=== PATIENT | male | born 1950 | race Caucasian/White ===

== ENCOUNTER 2019-09-17 | Emergency (ER) | payer MEDICARE, OTHER ==
[2019-09-17] MEDS ORDERED: ALLOPURINOL300 MG PO (10:42)
[2019-09-17] MEDS ORDERED: BISOPROL FUM5 MG PO (10:44)
[2019-09-17] MEDS ORDERED: OCUVITE PO (10:47)
[2019-09-17] MEDS ORDERED: CIALIS5 MG PO (10:48)
[2019-09-17] MEDS ORDERED: DILTIAZEM HYDR240 MG PO (10:52)
[2019-09-17] MEDS ORDERED: DEPO-TESTOS100 MG/ML IM (10:55)
[2019-09-17] MEDS ORDERED: FOLIC ACID1 MG PO (10:56)
[2019-09-17] MEDS ORDERED: FUROSEMIDE20 MG PO ×2 (10:59→11:01)
[2019-09-17] MEDS ORDERED: GABAPENTIN100 MG PO (11:02)
[2019-09-17] MEDS ORDERED: [UNRECOGNIZED DRUG - OTHER] PO (11:03)
[2019-09-17] MEDS ORDERED: FISH OIL1000 MG PO (11:03)
[2019-09-17] MEDS ORDERED: MICARDIS40 MG PO (11:05)
[2019-09-17] MEDS ORDERED: METRONIDAZOLE (11:05)
[2019-09-17] MEDS ORDERED: PROTONIX40 M2 PO (11:06)
[2019-09-17] MEDS ORDERED: PRAVASTATIN20 MG PO (11:07)
[2019-09-17] MEDS ORDERED: SPIRONOLACTONE25 MG PO (11:08)
[2019-09-17] MEDS ORDERED: IBUPROFEN600 MG PO (12:11)
[2019-09-17] MEDS ORDERED: HYDROCO/APAP1 TA9 PO (12:11)
== END 2019-09-17 12:30 | disposition home or self-care (01) ==
DX: S83.91XA Sprain of unspecified site of right knee, initial encounter (principal); I10 Essential (primary) hypertension; I48.91 Unspecified atrial fibrillation; W18.2XXA Fall in (into) shower or empty bathtub, initial encounter; Y93.E1 Activity, personal bathing and showering; Y92.002 Bathroom of unspecified non-institutional (private) residence as the place of occurrence of the external cause; Z95.0 Presence of cardiac pacemaker; M79.89 Other specified soft tissue disorders
CPT/HCPCS: L1830

== ENCOUNTER 2020-10-30 09:33 | Emergency (ER) | payer MEDICARE, OTHER ==
[~2020-10-30] VITALS: Ht 193 cm; Wt 131.8 kg
[~2020-10-30 09:33] MED LIST: ALLOPURINOL300 MG PO; BISOPROL FUM5 MG PO; CIALIS5 MG PO; DEPO-TESTOS100 MG/ML IM; DILTIAZEM HYDR240 MG PO; FISH OIL1000 MG PO; FOLIC ACID1 MG PO; FUROSEMIDE20 MG PO; GABAPENTIN100 MG PO; HYDROCO/APAP1 TA9 PO; IBUPROFEN600 MG PO; METRONIDAZOLE; MICARDIS40 MG PO; OCUVITE PO; PRAVASTATIN20 MG PO; PROTONIX40 M2 PO; SPIRONOLACTONE25 MG PO; [UNRECOGNIZED DRUG - OTHER] PO
[2020-10-30] MEDS ORDERED: KEFLEX500 M1 PO (11:26)
[2020-10-30 11:40] VITALS: BP 138/72
== END 2020-10-30 11:40 | disposition home or self-care (01) ==
LOC: ED 09:33
DX: L03.116 Cellulitis of left lower limb (principal); L84 Corns and callosities; I11.0 Hypertensive heart disease with heart failure; I50.9 Heart failure, unspecified; I48.91 Unspecified atrial fibrillation; E78.00 Pure hypercholesterolemia, unspecified; Z95.0 Presence of cardiac pacemaker

== ENCOUNTER 2021-09-06 17:20 | Observation (INO) | payer MEDICARE, OTHER ==
[~2021-09-06] VITALS: Ht 193 cm; Wt 126.0 kg
[~2021-09-06 17:20] MED LIST changes: +KEFLEX500 M1 PO
--- NOTE | 2021-09-06 17:25 | NUR ---
PT TO ROOM VIA WHEELCHAIR, ACCOMPANIED BY .
[2021-09-06 18:30] LABS: HEMATOCRIT 42.4 % (39.0-50.0); HEMOGLOBIN 14.6 g/dl (14.0-18.0); IMMATURE GRANULOCYTES 0.2 % (0.0-5.0); MEAN CELL VOLUME 102.2 fL CALC (80.0-100.0); MEAN CORPUSCULAR HGB 35.2 pG CALC (26.0-32.0); MEAN CORPUSCULAR HGB CONC 34.4 g/dL CAL (32.0-36.0); NEUT# 7.94 thou/uL (1.82-7.42); RED BLOOD COUNT 4.15 mill/uL (4.70-6.10); RED CELL DISTRI WIDTH 12.9 % (11.5-15.5)
--- NOTE | 2021-09-06 18:38 | NUR ---
Reassessment of patient completed. No distress noted.
[2021-09-06 18:44] LABS: ALBUMIN 4.1 g/dL (3.2-5.0); ALKALINE PHOSPHATASE 49 u/l (38-126); ANION GAP 12 (6-22 (CALC)); BILIRUBIN, TOTAL 1.1 mg/dL (0.0-1.4); BUN 29 mg/dL (8-23); BUN/CREATININE RATIO 24 (12-20 (CALC)); CARBON DIOXIDE 27 mmol/l (22-30); CHLORIDE 96 mmol/l (95-108); CREATININE 1.2 mg/dL (0.7-1.3); GFR 60 ML/MIN (>=60 (CALC)); GFR FOR AFR.AMER. > 60 ML/MIN (>=60 (CALC)); SGOT/AST 26 u/l (19-48); SODIUM 130 mmol/l (137-146); TOTAL PROTEIN 7.9 g/dL (6.3-8.2)
--- NOTE | 2021-09-06 19:04 | NUR ---
Reassessment of patient completed. No distress noted.
--- NOTE | 2021-09-06 19:25 | NUR ---
DRSG APPLIED TO LEFT FOOT ABSCESS PRESENT TO LEFT FOOT PLANTAR.
[2021-09-06] MEDS ORDERED: FINASTERIDE5 MG PO (19:28)
[2021-09-06] MEDS ORDERED: PANTOPRAZOLE SO40 M1 PO (19:28)
[2021-09-06] MEDS ORDERED: MICARDIS80 MG PO (19:30)
[2021-09-06] MEDS ORDERED: ALFUZOSIN HCL E10 MG PO (19:30)
[2021-09-06] MEDS ORDERED: ZYLOPRIM300 MG PO (19:31)
[2021-09-06] MEDS ORDERED: GABAPENTIN100 MG PO (19:32)
[2021-09-06] MEDS ORDERED: FOLIC ACID1 MG PO (19:32)
[2021-09-06] MEDS ORDERED: KLOR-CON M2020 MEQ PO (19:33)
[2021-09-06] MEDS ORDERED: PACERONE200 MG PO (19:34)
[2021-09-06] MEDS ORDERED: CIALIS5 MG PO (19:35)
[2021-09-06] MEDS ORDERED: NEO/POLY/DEX0.13 OU (19:37)
[2021-09-06] MEDS ORDERED: ELIQUIS5 MG PO (19:38)
[2021-09-06] MEDS ORDERED: CREON12000 UNT PO (19:38)
[2021-09-06] MEDS ORDERED: DILTIAZEM HCL240 M1 PO (19:39)
[2021-09-06] MEDS ORDERED: SPIRONOLACTONE25 MG PO (19:40)
[2021-09-06] MEDS ORDERED: FUROSEMIDE20 MG PO (19:41)
[2021-09-06] MEDS ORDERED: BISOPROL FUM5 MG PO (19:42)
[2021-09-06] MEDS ORDERED: FLUTICASONE0.005 % EX (19:44)
[2021-09-06] MEDS ORDERED: PRAVASTATIN40 MG PO (19:45)
[2021-09-06] MEDS ORDERED: PROPAFENONE150 M1 PO (19:46)
--- NOTE | 2021-09-06 19:54 | NUR ---
REPORT PROVIDED TO PIPPA HUNTLEY
--- NOTE | 2021-09-06 20:22 | NUR ---
NURSE ROBERTO NOT AVAILABLE FOR REPORT AT THIS TIME. WILL CALL BACK FOR REPORT
--- NOTE | 2021-09-06 20:29 | NUR ---
PT AGREES WITH PLAN FOR ADMISSION. VANCO INFUSION RUNNING. VSS. NO DISTRESS
--- NOTE | 2021-09-06 20:30 | NUR ---
Admission Note Report Given to: ROBERTO Transported by: Wheelchair Stretcher Transported with: X Nurse Transporter X Patent IV O2 Lathe Sander Location: ICU X MS2 TRANSPORTED VIA WHEELCHAIR
[2021-09-06 21:21] VITALS: BP 144/71
--- NOTE | 2021-09-06 23:00 | NUR ---
PATIENT ADMITTED FROM ER VIA WHEELCHAIR WITH ER STAFF IN ATTENDANCE. PATIENT ABLE TO TRANSFER TO THE BED. PATIENT IS AWAKE ALERT AND ORIENTEDX3. ADMITTED FOR CELLULITIS/ABCESS LEFT FOOT. DRESSING TO LEFT FOOT IS CDI. ELEVATED ON PILLOW FOR SWOLLEN FOOT. PATIENT FOR PROBABLE SURGERY TOMORROW WITH PODIATRY. NPO ORDERED. IV SITE TO LEFT HAND INTACT AND HEALTHY WITH GOOD BLKOOD RETURN. IVF NS HUNG AND INFUSING AT 100CC/HR. MAXIPIME HUNG ORDERED. PATIENT WITH NO PAIN ISSUES AT THIS TIME. LUNGS ARE CLEAR. ABD IS LARGE BUT SOFT WITH ACTIVE BS. STATES THAT HE HAD BM TODAY AND NO DIFFICULTY WITH URINATION AT THIS TIME. PATIENT ORIENTED TO ROOM AND SURROUNDINGS. INSTRUCTED ON USE OF NURSE CALL LIGHT SYSTEM AND TV REMOTE. SAFETY PRECAUTIONS REINFORCED. CALL LIGHT IN REACH. WILL CONT TO MONITOR.
--- NOTE | 2021-09-07 00:30 | NUR ---
PATIENT RESTING IN BED WITH C-PAP FROM HOME IN PLACE. NPO ORDERED. IVF PATENT AND INFUSING VIA LEFT HAND SITE. CALL LIGHT IN REACH. WILL CONT TO KEVAN.
--- NOTE | 2021-09-07 03:56 | NUR ---
PATIENT CALLED AND STATES THAT HIS LEFT FOOT DRESSING HAS FALLEN OFF. RESPONDED TO ROOM AND DRESSING IS OFF. WOUND TO LEFT FOOT WAS CLEANED WITH SALING AND NEW DSD WAS APPLIED AFTER TAKING PHOTO OF THE WOUND FOR THE CHART. MINIMAL DRAINAGE WAS NOTED ON OLD DRESSING. PATIENT WAS MEDICATED WITH TYLENOL 650MG PO FOR LEFT FOOT PAIN-5/10 ON PAIN SCALE. PATIENT REFUSING TO ELEVATE THE LEFT FOOT AT THIS TIME. STATES THAT IT IS TOO UNCOMFORTABLE. IVF NS PATENT AND INFUSING LEFT HAND SITE AT 100CC/HR. NPO EXCEPT FOR SIP OF WATER TO TAKE MEDS. VOIDED QS YELLOW URINE IN URINAL. SAFETY PRECAUTIONS REINFORCED. CALL LIGHT IN REACH. WILL CONT TO MONITOR.
[2021-09-07 04:00] VITALS: BP 145/68
--- NOTE | 2021-09-07 05:05 | NUR ---
PATIENT SITTING ON THE SIDE OF THE BED. ASKING FOR FAN AND ONE WAS PROVIDED. THERMASTAT WAS ADJUSTED FOR PATIENT WHO STATES HE IS TOO HOT. PATIENT WITH NON-PRODUCTIVE COUGH-STATES THAT THIS JUST STARTED TONIGHT. VOIDED 300CC OF YELLOW URINE IN URINAL. IVF NS PATENT AND INFUSING VIA LEFT HAND SITE AT 100CC/HR. REMAINS NPO FOR POSSIBLE PROCEURE TODAY.
--- NOTE | 2021-09-07 07:00 | NUR ---
DR PABLO AT BEDSIDE DISCUSSING POC
--- NOTE | 2021-09-07 07:32 | NUR ---
PT TRANSPORTED TO RADIOLOGY FOR XRAY OF LT FOOT PER DR PABLO'S ORDERS. PT LEFT IN STABLE CONDITION.
[2021-09-07 08:30] VITALS: BP 140/63
--- NOTE | 2021-09-07 09:45 | NUR ---
Jone MOROCHO RT AT BEDSIDE FOR EKG
--- NOTE | 2021-09-07 10:18 | NUR ---
CONSENT OBTAINED FROM PATIENT TO OBTAIN MEDICAL RECORDS FROM PCP: [facility] - DR. ALBERTS IN [place] PHONE # FAX # & FROM [employer] OFFICE DR CURRY[facility] PHONE # FAX # . REQUEST FORMS FAXED; CONFIRMATIONS OBTAINED.
--- NOTE | 2021-09-07 10:41 | NUR ---
DR MAYNARD, Jone GARDNER APRN AND Jone ALCAZAR APRN AT BEDSIDE DISCUSSING POC.
--- NOTE | 2021-09-07 10:51 | NUR ---
RADIOLOGY AT BEDSIDE OBTAINING PCXR.
--- NOTE | 2021-09-07 12:16 | NUR ---
PT SITTING IN BED; LUNCH BROUGHT PER MD ORDERS; PT NOT WANTING LUNCH ALTHOUGH HE ASKED FOR IT; STATES HE DOES NOT WANT TO JEOPARDIZE HIS SURGERY; AGREEABLE TO DRINKING HIS TEA; 400 CC OF YELLOW URINE EMPTIED FROM URINAL; LASIX IVP ADMINISTERED AT THIS TIME. UPDATED PT AND ON POC AND TRANSFER. NO OTHER NEEDS AT THIS TIME. CALL LIGHT WITHIN REACH.
[2021-09-07 15:00] VITALS: BP 163/76
--- NOTE | 2021-09-07 15:24 | NUR ---
S: CELESTINA BLACKWELL is a 71 M who presents witH FOOT ABSCESS . He has a history of AFIB HTN HF COPD CAD. All medications in patient's chart were reviewed. O: VS: BP 140/63 , P 62, RR 18,T 97 W 126kg, HT 76IN, Scr= 1.2,CrCl= 81ml/min A: Blood culture NEGATIVE P: Patient is on CEFEPIME 1 GRAM Q12H . Vancomycin ordered for pharmacy to dose. Start Vancomycin 1250MG IV Q12H. Vancomycin trough is drawn before the 4th dose on 09/08/21 @0900. Vancomycin goal trough is between <10-15 mcg/ml>. Pharmacy will follow and or advise on antibiotics use as needed.
--- NOTE | 2021-09-07 16:15 | NUR ---
Discharge instructions given. Patient verbalizes understanding of same. Discharged in stable condition via [facility] to [facility] accompanied by staff All belongings sent with pt including home cpap and other personal belongings. #20G LH remained; healthy and patent. Dressing applied to wound with telfa and kerlex for transport.
--- NOTE | 2021-09-07 16:23 | NUR ---
REPORT GIVEN TO SOLANGE DAS AT [facility]
== END 2021-09-07 16:15 | disposition short-term general hospital (02) ==
LOC: ED 17:20 → ED-I 19:00 → ED 19:07 → MS2 19:08
PROVIDERS: Family Medicine; ADMIT Hospitalist; ATTEND Hospitalist
DX: L02.612 Cutaneous abscess of left foot (principal); L03.116 Cellulitis of left lower limb; I11.0 Hypertensive heart disease with heart failure; I50.32 Chronic diastolic (congestive) heart failure; I49.5 Sick sinus syndrome; I48.19 Other persistent atrial fibrillation; I25.10 Atherosclerotic heart disease of native coronary artery without angina pectoris; E78.5 Hyperlipidemia, unspecified; K21.9 Gastro-esophageal reflux disease without esophagitis; G47.33 Obstructive sleep apnea (adult) (pediatric); Z79.01 Long term (current) use of anticoagulants; Z95.0 Presence of cardiac pacemaker; Z20.822 Contact with and (suspected) exposure to COVID-19
CPT/HCPCS: J0692; J3370

== ENCOUNTER 2022-09-24 05:54 | Inpatient (IN) | payer MEDICARE, OTHER ==
[~2022-09-24] VITALS: Ht 193 cm; Wt 127.2 kg
[~2022-09-24 05:54] MED LIST changes: +ALFUZOSIN HCL E10 MG PO; +CREON1 CAP PO; +DILTIAZEM HCL240 M1 PO; +ELIQUIS5 MG PO; +FINASTERIDE5 MG PO; +FLUTICASONE0.005 % EX; +KLOR-CON M2020 MEQ PO; +MICARDIS80 MG PO; +NEO/POLY/DEX0.13 OU; +PACERONE200 MG PO; +PANTOPRAZOLE SO40 M1 PO; +PRAVASTATIN40 MG PO; +PROPAFENONE150 M1 PO; +ZYLOPRIM300 MG PO
[2022-09-24 07:12] LABS: BASO% 0.3 % (0-3); EOS% 1.3 % (0-8); HEMATOCRIT 39.3 % (39.0-50.0); HEMOGLOBIN 13.8 g/dl (14.0-18.0); IMMATURE GRANULOCYTES 0.2 % (0.0-5.0); LYMPH% 10.5 % (15-41); MEAN CELL VOLUME 103.4 fL CALC (80.0-100.0); MEAN CORPUSCULAR HGB 36.3 pG CALC (26.0-32.0); MEAN CORPUSCULAR HGB CONC 35.1 g/dL CAL (32.0-36.0); MONO% 9.9 % (2-13); NEUT# 4.98 thou/uL (1.82-7.42); NEUT% 77.8 % (42-76); RED BLOOD COUNT 3.8 mill/uL (4.70-6.10); RED CELL DISTRI WIDTH 13.2 % (11.5-15.5)
[2022-09-24 07:43] LABS: ANION GAP 11 (6-22 (CALC)); BUN 19 mg/dL (8-23); BUN/CREATININE RATIO 18 (12-20 (CALC)); CARBON DIOXIDE 26 mmol/l (22-30); CHLORIDE 105 mmol/l (95-108); GFR FOR AFR.AMER. > 60 ML/MIN (>=60 (CALC)); GFR OTHER RACES > 60 ML/MIN (>=60 (CALC)); POTASSIUM 4.8 mmol/l (3.5-5.1)
[2022-09-24 07:50] LABS: SODIUM 137 mmol/l (137-146)
[2022-09-24] MEDS ORDERED: PLAVIX75 MG PO (08:52)
[2022-09-24] MEDS ORDERED: ASPIRIN81 MG PO (08:52)
[2022-09-24 10:47] VITALS: BP 153/69
[2022-09-24 15:07] VITALS: BP 150/63
[2022-09-24 19:43] VITALS: BP 171/72
[2022-09-25 01:23] VITALS: BP 186/95
[2022-09-25 04:13] VITALS: BP 153/63
[2022-09-25 06:13] LABS: HEMATOCRIT 36.7 % (39.0-50.0); HEMOGLOBIN 13.2 g/dl (14.0-18.0); IMMATURE GRANULOCYTES 0.5 % (0.0-5.0); LYMPH% 9.3 % (15-41); MEAN CELL VOLUME 101.7 fL CALC (80.0-100.0); MEAN CORPUSCULAR HGB 36.6 pG CALC (26.0-32.0); MONO% 2.9 % (2-13); NEUT# 3.86 thou/uL (1.82-7.42); NEUT% 87.3 % (42-76); RED BLOOD COUNT 3.61 mill/uL (4.70-6.10); RED CELL DISTRI WIDTH 12.8 % (11.5-15.5)
[2022-09-25 06:42] VITALS: BP 153/63
[2022-09-25 06:53] LABS: ALBUMIN 3.8 g/dL (3.2-5.0); ALKALINE PHOSPHATASE 57 u/l (38-126); ANION GAP 11 (6-22 (CALC)); BUN 24 mg/dL (8-23); BUN/CREATININE RATIO 25 (12-20 (CALC)); CARBON DIOXIDE 26 mmol/l (22-30); CHLORIDE 100 mmol/l (95-108); GFR FOR AFR.AMER. > 60 ML/MIN (>=60 (CALC)); GFR OTHER RACES > 60 ML/MIN (>=60 (CALC)); POTASSIUM 4.4 mmol/l (3.5-5.1); SGOT/AST 27 u/l (19-48); SODIUM 132 mmol/l (137-146); TOTAL PROTEIN 7.1 g/dL (6.3-8.2)
[2022-09-25 06:55] LABS: BILIRUBIN, TOTAL 0.3 mg/dL (0.0-1.4)
[2022-09-25 09:26] VITALS: BP 146/66
[2022-09-25 09:37] VITALS: BP 146/66
[2022-09-25] MEDS ORDERED: VIBRAMYCIN100 M2 PO (12:10)
[2022-09-25] MEDS ORDERED: MEDDOSEPAK PO (12:10)
== END 2022-09-25 13:42 | disposition home or self-care (01) | DRG 291 ==
LOC: ED 05:54 → ED-I 08:05 → ED 08:32 → MS2 08:33
PROVIDERS: Family Medicine; ADMIT Internal Medicine; ATTEND Internal Medicine
DX: I11.0 Hypertensive heart disease with heart failure (principal); J18.9 Pneumonia, unspecified organism; J96.01 Acute respiratory failure with hypoxia; J44.1 Chronic obstructive pulmonary disease with (acute) exacerbation; J44.0 Chronic obstructive pulmonary disease with (acute) lower respiratory infection; I48.19 Other persistent atrial fibrillation; I50.9 Heart failure, unspecified; K21.9 Gastro-esophageal reflux disease without esophagitis; N40.0 Benign prostatic hyperplasia without lower urinary tract symptoms; G47.30 Sleep apnea, unspecified; E78.00 Pure hypercholesterolemia, unspecified; E88.09 Other disorders of plasma-protein metabolism, not elsewhere classified; Z87.891 Personal history of nicotine dependence; Z89.422 Acquired absence of other left toe(s); Z95.818 Presence of other cardiac implants and grafts; Z95.0 Presence of cardiac pacemaker; Z20.822 Contact with and (suspected) exposure to COVID-19

== ENCOUNTER 2022-12-06 11:11 | Emergency (ER) | payer MEDICARE, OTHER ==
[~2022-12-06] VITALS: Ht 193 cm; Wt 280.0 kg
[~2022-12-06 11:11] MED LIST changes: +ASPIRIN81 MG PO; +MEDDOSEPAK PO; +PLAVIX75 MG PO; +VIBRAMYCIN100 M2 PO
[2022-12-06 14:08] VITALS: BP 140/69
== END 2022-12-06 14:21 | disposition home or self-care (01) ==
LOC: ED 11:11
PROC: 2W3EX1Z Immobilization of Right Hand using Splint (ICD-10-PCS; principal; 2022-12-06)
DX: S90.412A Abrasion, left great toe, initial encounter (principal); S62.656A Nondisplaced fracture of middle phalanx of right little finger, initial encounter for closed fracture; S80.212A Abrasion, left knee, initial encounter; I11.0 Hypertensive heart disease with heart failure; I50.9 Heart failure, unspecified; I48.91 Unspecified atrial fibrillation; E78.00 Pure hypercholesterolemia, unspecified; W17.89XA Other fall from one level to another, initial encounter; Y93.E9 Activity, other interior property and clothing maintenance; Y92.009 Unspecified place in unspecified non-institutional (private) residence as the place of occurrence of the external cause; Z89.422 Acquired absence of other left toe(s); Z79.02 Long term (current) use of antithrombotics/antiplatelets; Z95.0 Presence of cardiac pacemaker; Z79.82 Long term (current) use of aspirin

== ENCOUNTER 2023-11-11 18:30 | Emergency (ER) | payer MEDICARE, OTHER ==
[~2023-11-11] VITALS: Ht 188 cm; Wt 129.2 kg
[~2023-11-11 18:30] MED LIST changes: +CARTIA XT180 MG PO; +TAMSULOSIN0.4 MG PO
[2023-11-11 19:15] LABS: BASO% 0.3 % (0-3); EOS% 0.6 % (0-8); HEMATOCRIT 37.5 % (39.0-50.0); HEMOGLOBIN 12.4 g/dl (14.0-18.0); IMMATURE GRANULOCYTES 0.7 % (0.0-5.0); LYMPH% 16.3 % (15-41); MEAN CELL VOLUME 106.2 fL CALC (80.0-100.0); MEAN CORPUSCULAR HGB 35.1 pG CALC (26.0-32.0); MEAN CORPUSCULAR HGB CONC 33.1 g/dL CAL (32.0-36.0); MONO% 9.4 % (2-13); NEUT# 4.93 thou/uL (1.82-7.42); NEUT% 72.7 % (42-76); RED BLOOD COUNT 3.53 mill/uL (4.70-6.10); RED CELL DISTRI WIDTH 13.9 % (11.5-15.5)
[2023-11-11 19:29] LABS: INTERNATIONAL NORMALIZED RATIO 1.1 RATIO (0.7-1.3); PROTHROMBIN TIME 10.7 SECONDS (9.0-12.5)
[2023-11-11 19:48] VITALS: BP 108/55
== END 2023-11-11 19:50 | disposition home or self-care (01) ==
LOC: ED 18:30
PROVIDERS: Nurse Practitioner
DX: T82.838A Hemorrhage due to vascular prosthetic devices, implants and grafts, initial encounter (principal); I11.0 Hypertensive heart disease with heart failure; I50.9 Heart failure, unspecified; I48.91 Unspecified atrial fibrillation; Y83.8 Other surgical procedures as the cause of abnormal reaction of the patient, or of later complication, without mention of misadventure at the time of the procedure; Z95.0 Presence of cardiac pacemaker